=== PATIENT | male | born 1950 | race Caucasian/White ===

== ENCOUNTER → 2024-05-20 | Outpatient (CLI) | payer OTHER, SELFPAY ==
--- NOTE | 2024-05-20 | DI.ECHO.S_ITS ---
[facility] : : [address] : : [place] : : [id number] : : Phone: [phone] Echocardiogram Report + + :Name: ROXI CALHOUN Study Date: 05/20/2024 Height: 67 in : :[facility] ReadingLocation: Weight: 143 lb : : Gender: Male BSA: 1.8 m2 : :: 1950 Age: 73 yrs BP: 143/92 mmHg: :Reason For Study: HYPERTENSION : :Ordering Physician: NICK, : :EMELY Performed By: Karishma Harris : :Referring: EMELY ROMERO : + + Interpretation Summary Left ventricular ejection fraction is estimated to be 40%. Lateral and inferolateral hypokinesis. There is no significant valvular heart disease. Procedure: A two-dimensional transthoracic echocardiogram with color flow and Doppler was performed. The study quality was technically adequate. Comparison is made with the echocardiogram of 11/12/2023. The patient was in sinus rhythm with heart rates between 60-73 bpm during the exam. Left Ventricle: The left ventricle is normal in size. There is mild concentric left ventricular hypertrophy. Left ventricular ejection fraction is estimated to be 40%. Lateral and inferolateral hypokinesis. Right Ventricle: The right ventricle is normal size. There is a pacemaker lead in the right ventricle. The right ventricular systolic function is normal. Atria: The left atrium is mildly dilated. Right atrial size is normal. There is a catheter/pacemaker lead seen in the right atrium. There is no Doppler evidence for an interatrial shunt. Mitral Valve: The mitral valve leaflets appear mildly thickened, but open well. There is mild mitral regurgitation. Aortic Valve: The aortic valve is trileaflet. The aortic valve opens well. There is no aortic valve stenosis. No aortic regurgitation is present. Tricuspid Valve: The tricuspid valve leaflets are thickened and/or calcified, but open well. There is mild tricuspid regurgitation. The right ventricular systolic pressure is estimated to be at least 29 mmHg based on an estimated right atrial pressure of 3 mm Hg. Pulmonic Valve: The pulmonic valve is not well visualized. There is no pulmonic valvular regurgitation. Great Vessels: The aortic root is normal size. The dimensions of the ascending aorta are normal. The IVC is of normal diameter and collapses greater than 50% with a sniff. This suggests a low right atrial pressure of 3 mm Hg. Pericardium/ Pleura There is no pericardial effusion. There is no pleural effusion. MMode/2D Measurements & Calculations LVIDd: 4.7 cm LVOT diam: 2.0 cm LVIDs: 3.5 cm Ao root diam: 3.2 cm FS: 25.5 % asc Aorta Diam: 3.4 cm EPSS: 0.74 cm Ao Arch Diam (Prox Trans): 2.5 cm IVSd: 1.2 cm LVPWd: 1.0 cm LV watson. diameter/BSA (cm/m^2): 2.7 LV sys. diameter/BSA (cm/m^2): 2.0 LA A2 area: 21.9 cm2 RA long axis: 4.7 cm LA A4 area: 19.3 cm2 RA area: 15.5 cm2 LA length (vol): 5.3 cm RA vol: 42.8 ml LA vol: 67.9 ml RA : 24.4 ml/m2 LA vol index: 38.7 ml/m2 IVC diam: 1.5 cm RVD1 (basal): 3.0 cm RVD2 (mid): 2.8 cm TAPSE: 2.0 cm Doppler Measurements & Calculations Ao V2 max: 132.8 cm/sec LVOT Max Avni: 102.1 cm/sec Ao V2 mean: 88.0 cm/sec LV V1 max P.2 mmHg Ao max P.1 mmHg LV V1 VTI: 20.2 cm Ao mean P.5 mmHg CLARE(I,D): 2.3 cm2 Ao V2 VTI: 28.5 cm CLARE(V,D): 2.4 cm2 sev ratio: 0.71 CLARE indexed to BSA (cm^2/m^2): 1.3 MV E max avni: 50.9 cm/sec TR max avni: 252.9 cm/sec MV A max avni: 65.4 cm/sec TR max P.6 mmHg MV E/A: 0.78 PA V2 max: 76.9 cm/sec Med Peak E' Avni: 7.6 cm/sec PA V2 mean: 60.1 cm/sec E/E' med: 6.7 PA mean P.5 mmHg Lat Peak E' Avni: 9.2 cm/sec PA pr(Accel): 31.0 mmHg E/E' lat: 5.5 E/e' average: 6.1 MV dec time: 0.23 sec MR ERO: 0.06 cm2 MR PISA: 0.92 cm2 SV(LVOT): 64.5 ml MR flow rate: 30.0 cm3/sec MR PISA radius: 0.38 cm Reading Physician:10:09 AM
== END ==
PROVIDERS: Referring Provider Chiropractor; Visit Provider Chiropractor
DX: I08.1 Rheumatic disorders of both mitral and tricuspid valves (principal); I10 Essential (primary) hypertension; Z95.0 Presence of cardiac pacemaker
CPT/HCPCS: 93306

== ENCOUNTER → 2025-02-03 13:22 | Outpatient (CLI) | payer OTHER, SELFPAY ==
--- NOTE | 2025-02-03 13:24 | DI.ECHO.S_ITS ---
[facility] +---------+ [facility] : : [address] : : [place] : : [id number] : : Phone: [phone] Echocardiogram Report + + :Name: ROXI CALHOUN Study Date: 02/03/2025 Height: 67 in : :Hospital ReadingLocation: Weight: 138 lb : : Gender: Male BSA: 1.7 m2 : :: 1950 Age: 74 yrs BP: 112/79 mmHg: :Reason For Study: Coronary artery disease : :Ordering Physician: NICK, : :EMELY Performed By: Keaton Yun : :Referring: EMELY ROMERO : + + Interpretation Summary Left ventricular ejection fraction is estimated to be 40%. Lateral and inferolateral hypokinesis remains unchanged There is a pacemaker lead in the right ventricle. There is mild mitral regurgitation. There is trace tricuspid regurgitation. The right ventricular systolic pressure is estimated to be at least 29 mmHg based on an estimated right atrial pressure of 3 mm Hg. Procedure: A two-dimensional transthoracic echocardiogram with color flow and Doppler was performed. The study quality was technically adequate. Comparison is made with the echocardiogram of 05/20/2024. The patient was in normal sinus rhythm during the exam. Left Ventricle: The left ventricle is normal in size. Left ventricular wall thickness is mild-moderately increased. Left ventricular ejection fraction is estimated to be 40%. Lateral and inferolateral hypokinesis remains unchanged. Grade I diastolic dysfunction with normal left atrial pressure. Right Ventricle: The right ventricle is normal in size and function. There is a pacemaker lead in the right ventricle. Atria: The left atrial size is normal. Right atrial size is normal. There is no Doppler evidence for an interatrial shunt. Mitral Valve: The mitral valve leaflets appear to open well. There is no mitral valve stenosis. There is mild mitral regurgitation. Aortic Valve: The aortic valve is trileaflet. The aortic valve opens well. There is no aortic valve stenosis. There is trace aortic regurgitation. Tricuspid Valve: The tricuspid valve is not well visualized, but is grossly normal. There is trace tricuspid regurgitation. The right ventricular systolic pressure is estimated to be at least 29 mmHg based on an estimated right atrial pressure of 3 mm Hg. Pulmonic Valve: The pulmonic valve is not well seen, but is grossly normal. There is trace pulmonic regurgitation. Great Vessels: The aortic root is normal size. The ascending aorta is normal in size. The aortic arch could not be visualized. The IVC is of normal diameter and collapses greater than 50% with a sniff. This suggests a low right atrial pressure of 3 mm Hg. Pericardium/ Pleura There is no pericardial effusion. MMode/2D Measurements & Calculations LVIDd: 4.9 cm LVOT diam: 2.1 cm LVIDs: 3.9 cm Ao root diam: 3.2 cm FS: 19.4 % asc Aorta Diam: 3.0 cm IVSd: 1.4 cm LVPWd: 1.4 cm LV watson. diameter/BSA (cm/m^2): 2.8 LV sys. diameter/BSA (cm/m^2): 2.3 LA A2 area: 20.5 cm2 RA long axis: 4.9 cm LA A4 area: 17.8 cm2 RA area: 14.2 cm2 LA length (vol): 5.5 cm RA vol: 34.9 ml LA vol: 56.3 ml RA : 20.2 ml/m2 LA vol index: 32.6 ml/m2 IVC diam: 1.4 cm RVD1 (basal): 3.4 cm RVD2 (mid): 2.5 cm TAPSE: 2.3 cm Doppler Measurements & Calculations Ao V2 max: 125.7 cm/sec LVOT Max Avni: 102.0 cm/sec Ao V2 mean: 88.2 cm/sec LV V1 max P.2 mmHg Ao max P.3 mmHg LV V1 VTI: 17.9 cm Ao mean P.5 mmHg CLARE(I,D): 2.7 cm2 Ao V2 VTI: 22.9 cm CLARE(V,D): 2.9 cm2 sev ratio: 0.78 CLARE indexed to BSA (cm^2/m^2): 1.6 MV E max avni: 40.4 cm/sec TR max avni: 256.7 cm/sec MV A max avni: 55.7 cm/sec TR max P.4 mmHg MV E/A: 0.72 PA V2 max: 76.1 cm/sec Med Peak E' Avni: 6.2 cm/sec PA V2 mean: 53.8 cm/sec E/E' med: 6.5 PA mean P.3 mmHg Lat Peak E' Avni: 6.1 cm/sec PA pr(Accel): 44.7 mmHg E/E' lat: 6.6 E/e' average: 6.6 MV dec time: 0.22 sec [facility] 62.9 ml Reading Physician:05:46 PM
== END ==
LOC: ECHO 13:23
PROVIDERS: Referring Provider Chiropractor; Visit Provider Chiropractor
DX: I34.0 Nonrheumatic mitral (valve) insufficiency (principal); I25.10 Atherosclerotic heart disease of native coronary artery without angina pectoris
CPT/HCPCS: 93306